=== PATIENT | male | born 1980 | race African-American/Black ===

== ENCOUNTER 2016-10-03 14:01 | Emergency (ER) | payer BC ==
[2016-10-03] MEDS ORDERED: ONDANSETRON 4 MG TAB.RAPDIS PO ONE (14:32)
--- NOTE | 2016-10-03 14:32 | ER Document Report ---
ED Medical Screen (RME) - General Stated Complaint: ABDOMINAL PAIN,VOMITING Notes: States he was started on lisinopril on Thursday. Has been taking on empty stomach. Vomiting and abdominal pain started Thursday, no diarrhea. No vomiting today. No dysuria. No fever. I have greeted and performed a rapid initial assessment of this patient. A comprehensive ED assessment and evaluation of the patient, analysis of test results and completion of the medical decision making process will be conducted by additional ED providers. Physical Exam - Vital signs Vitals: Temp Pulse Resp BP Pulse Ox 98.8 F 86 18 173/73 H 100 10/03/16 14:24 10/03/16 14:24 10/03/16 14:24 10/03/16 14:24 10/03/16 14:24 - Abdominal Inspection: Obese Tenderness: Tender - epigastric area Course - Vital Signs Vital signs: Temp Pulse Resp BP Pulse Ox 98.8 F 86 18 173/73 H 100 10/03/16 14:24 10/03/16 14:24 10/03/16 14:24 10/03/16 14:24 10/03/16 14:24
[2016-10-03 15:16] LABS: ABSOLUTE BASOPHILS # (AUTO) 0.1 10^3/uL (0.0-0.2); ABSOLUTE EOSINOPHILS # (AUTO) 0.4 10^3/uL (0.0-0.6); ABSOLUTE LYMPHOCYTES (AUTO) 2.7 10^3/uL (0.5-4.7); ABSOLUTE NEUT (AUTO) 11.7 10^3/uL (1.7-8.2); BASOPHILS % (AUTO) 0.6 % (0-2); EOSINOPHILS % (AUTO) 2.6 % (0-6); HEMATOCRIT 48.7 % (37.9-51.0); HEMOGLOBIN 15.7 g/dL (13.5-17.0); HGB HCT DIFFERENCE -1.6; LYMPHOCYTES % (AUTO) 17.1 % (13-45); MEAN CORPUSCULAR HEMOGLOBIN 26.3 pg (27.0-33.4); MEAN CORPUSCULAR HGB CONC 32.3 g/dL (32.0-36.0); MEAN CORPUSCULAR VOLUME 81 fl (80-97); MONOCYTES % (AUTO) 6.4 % (3-13); RED BLOOD COUNT 5.98 10^6/uL (4.35-5.55); RED CELL DISTRIBUTION WIDTH 15.8 % (11.5-14.0); SEGMENTED NEUTROPHILS % (AUTO) 73.3 % (42-78)
[2016-10-03 15:39] LABS: ALANINE AMINOTRANSFERASE 38 U/L (21-72); ALBUMIN 4.7 g/dL (3.5-5.0); ALKALINE PHOSPHATASE 90 U/L (38-126); ANION GAP 13 (5-19); ASPARTATE AMINO TRANSFERASE 27 U/L (17-59); BILIRUBIN,DIRECT 0.2 mg/dL (0.0-0.4); BILIRUBIN,TOTAL 0.8 mg/dL (0.2-1.3); BLOOD UREA NITROGEN 11 mg/dL (7-20); CALCIUM 10.1 mg/dL (8.4-10.2); CARBON DIOXIDE 31 mmol/L (22-30); CHLORIDE 98 mmol/L (98-107); CREATININE RESULT 0.84 mg/dL (0.52-1.25); GLUCOSE 133 mg/dL (75-110); LIPASE 39.6 U/L (23-300); POTASSIUM 4.1 mmol/L (3.6-5.0); SODIUM 141.8 mmol/L (137-145); TOTAL PROTEIN 8.2 g/dL (6.3-8.2)
[2016-10-03 16:43] LABS: APPEARANCE,URINE TURBID; BILIRUBIN,URINE SMALL (NEGATIVE); GLUCOSE, URINE NEGATIVE (NEGATIVE); KETONES,URINE 80 mg/dL (NEGATIVE); LEUKOCYTE ESTERASE,URINE NEGATIVE (NEGATIVE); NITRITE,URINE NEGATIVE (NEGATIVE); PROTEIN,URINE 100 mg/dL (NEGATIVE); URINE SPECIFIC GRAVITY 1.038
[2016-10-03] MEDS ORDERED: NORMAL SALINE 1000 ML 2,000 ML IV ONE (17:52)
--- NOTE | 2016-10-03 17:52 | ER Document Report ---
ED GI/ - General Chief Complaint: Abdominal Pain Stated Complaint: ABDOMINAL PAIN,VOMITING Time seen by provider: 17:47 Mode of Arrival: Ambulatory Information source: Patient Notes: 35-year-old morbidly obese male complaining of right-sided abdominal pain and vomiting for 2 days. No diarrhea. He had a hard stool yesterday. No fever or chills. No rash. No history of abdominal surgeries. I called and the CT scanner does not accommodate someone that weighs 227 kg but they do have a ability to do an acute abdominal exam on the man side of the radiology. I discussed this case with Dr. Khan and after morphine and 2 L of fluid we will will look at the acute abdominal series and decide if he still needs a CT scan. TRAVEL OUTSIDE OF THE [place] IN LAST 30 DAYS: No - Related Data Allergies/Adverse Reactions: No Known Allergies Allergy (Unverified 10/03/16 14:31) Past Medical History - General Information source: Patient - Social History Smoking Status: Never Smoker Chew tobacco use (# tins/day): No Frequency of alcohol use: None Drug Abuse: None Lives with: Family Family History: Reviewed & Not Pertinent - Medical History Notes: Morbid obesity Renal/ Medical History: Denies: Hx Peritoneal Dialysis Surgical Hx: Negative Past Surgical History: Reports: Other - He is a patient at [facility] for possible weight [facility] surgery in the - Immunizations Hx Diphtheria, Pertussis, Tetanus Vaccination: No Review of Systems - Review of Systems Constitutional: No symptoms reported EENT: No symptoms reported Cardiovascular: No symptoms reported Respiratory: No symptoms reported Gastrointestinal: See HPI Genitourinary: No symptoms reported Male Genitourinary: No symptoms reported Musculoskeletal: No symptoms reported Skin: No symptoms reported Hematologic/Lymphatic: No symptoms reported Neurological/Psychological: No symptoms reported Physical Exam - Vital signs Vitals: Temp Pulse Resp BP Pulse Ox 98.8 F 86 18 173/73 H 100 10/03/16 14:24 10/03/16 14:24 10/03/16 14:24 10/03/16 14:24 10/03/16 14:24 Interpretation: Hypertensive. No: Febrile - Notes Notes: Morbidly obese - General General appearance: Appears well, Alert In distress: None - HEENT Head: Normocephalic, Atraumatic Eyes: Normal Conjunctiva: Normal Pupils: PERRL Tympanic membrane: Normal Nasal: Normal Mucous membranes: Dry Neck: Supple. No: Lymphadenopathy - Respiratory Respiratory status: No respiratory distress Chest status: Nontender Breath sounds: Normal Chest palpation: Normal - Cardiovascular Rhythm: Regular Heart sounds: Normal auscultation Murmur: No - Abdominal Inspection: Normal Distension: No distension Bowel sounds: Normal Tenderness: Tender - Right middle Organomegaly: No organomegaly Notes: Abdomen is so large it is difficult to determine where the organs are - Back Back: Normal, Nontender. No: CVA tenderness - Extremities General upper extremity: Normal inspection, Nontender, Normal color, Normal ROM , Normal temperature General lower extremity: Normal inspection, Nontender, Normal color, Normal ROM , Normal temperature, Normal weight bearing. No: Gera's sign - Neurological Neuro grossly intact: Yes Cognition: Normal Orientation: AAOx4 Mathew Coma Scale Eye Opening: Spontaneous Mathew Coma Scale Verbal: Oriented [place] Coma Scale Motor: Obeys Commands [place] Coma Scale Total: 15 Speech: Normal Motor strength normal: LUE, RUE, LLE, RLE Sensory: Normal - Psychological Associated symptoms: Normal affect, Normal mood - Skin Skin Temperature: Warm Skin Moisture: Dry Skin Color: Normal Skin irregularity: negative: Rash Course - Re-evaluation Re-evalutation: 10/03/16 17:54 Patient weight is too high for our CT scan tables. We do have a table in radiology that will hold him for an acute abdominal series which I will start with that x-ray. 10/03/16 20:58 pt is non tender, ddrinking water without nausea or abd pain. dr. collazo will check the pt to make sure he can go home. will have the pt return for recheck in the morning. - Vital Signs Vital signs: Temp Pulse Resp BP Pulse Ox 98.8 F 86 18 173/73 H 100 10/03/16 14:24 10/03/16 14:24 10/03/16 16:54 10/03/16 14:24 10/03/16 14:24 - Laboratory Result Diagrams: 10/03/16 13:57 10/03/16 13:57 Laboratory results interpreted by me: 10/03/16 10/03/16 10/03/16 13:57 13:57 13:57 WBC 16.0 H RBC 5.98 H MCH 26.3 L RDW 15.8 H Absolute Neutrophils 11.7 H Carbon Dioxide 31 H Glucose 133 H Urine Protein 100 H Urine Ketones 80 H Urine Bilirubin SMALL H Urine Urobilinogen 2.0 H Discharge - Discharge Clinical Impression: vomiting, dehydration, Resolved abdominal pain Condition: Good Disposition: HOME, SELF-CARE Instructions: Abdominal Pain ([facility]), Dehydration ([facility]), Vomiting ([facility]) Additional Instructions: drink plenty of water tonight, advance diet as tolerated. return if abominal pain recurs dr taylor will need to order a thyroid ultrsound or CT of the neck to rule out a vamsi or left lobe of thyroid enlargement. The imaging of the abdomen showed that the trachea is deviated to the right. come to er tomorrow for abdominal recheck and lab recheck Please complete the patient satisfaction survey if you get one, and return it.. If you do not receive a survey, then you can go to the [facility] website, [email or web address] and place your comments about your very good care. Thank you very much. It was a pleasure being your medical provider today. Referrals: AGA TAYLOR MD [ACTIVE STAFF] - 10/06/16
[2016-10-03] MEDS ORDERED: MORPHINE SULFATE 10 MG/ML INJ IV ONE (17:53)
[2016-10-03 21:26] VITALS: BP 140/68
== END 2016-10-03 21:24 | disposition home or self-care (01) ==
LOC: ER 14:01
DX: R11.10 Vomiting, unspecified (principal); E86.0 Dehydration; R10.9 Unspecified abdominal pain; E66.01 Morbid (severe) obesity due to excess calories
CPT/HCPCS: 99284; 96374; 36415; 83690; 85025; 80053; 81001; 74022; S0119; J2270; J7030

== ENCOUNTER 2016-10-04 16:24 | Emergency (ER) | payer BC ==
--- NOTE | 2016-10-04 16:29 | ER Document Report ---
ED Medical Screen (RME) - General Stated Complaint: ABDOMINAL PAIN Mode of Arrival: Ambulatory Information source: Patient Notes: Patient reports a history of abdominal pain for the past 72 hours. Patient was evaluated here for this complaint yesterday and advised to come back for repeat examination. No nausea, vomiting, or diarrhea. No fever. Patient reports that taking anything oral aggravates his abdominal pain. hx: None I have greeted and performed a rapid initial assessment of this patient. A comprehensive ED assessment and evaluation of the patient, analysis of test results and completion of the medical decision making process will be conducted by additional ED providers. TRAVEL OUTSIDE OF THE [place] IN LAST 30 DAYS: No - Related Data Allergies/Adverse Reactions: No Known Allergies Allergy (Unverified 10/03/16 14:31) Past Medical History Renal/ Medical History: Denies: Hx Peritoneal Dialysis Past Surgical History: Reports: Other - He is a patient at [facility] for possible weight loss surgery in the - Immunizations Hx Diphtheria, Pertussis, Tetanus Vaccination: No Physical Exam - Abdominal Inspection: Morbidly Obese Tenderness: Tender - Middle temporal tenderness
[2016-10-04 17:03] LABS: APPEARANCE,URINE SLIGHTLY-CLOUDY; BILIRUBIN,URINE NEGATIVE (NEGATIVE); GLUCOSE, URINE NEGATIVE (NEGATIVE); KETONES,URINE 20 mg/dL (NEGATIVE); LEUKOCYTE ESTERASE,URINE NEGATIVE (NEGATIVE); NITRITE,URINE NEGATIVE (NEGATIVE); PROTEIN,URINE NEGATIVE (NEGATIVE); URINE SPECIFIC GRAVITY 1.024
[2016-10-04 17:07] LABS: ABSOLUTE BASOPHILS # (AUTO) 0.1 10^3/uL (0.0-0.2); ABSOLUTE EOSINOPHILS # (AUTO) 0.4 10^3/uL (0.0-0.6); ABSOLUTE LYMPHOCYTES (AUTO) 2.4 10^3/uL (0.5-4.7); ABSOLUTE MONOCYTES (AUTO) 0.9 10^3/uL (0.1-1.4); ABSOLUTE NEUT (AUTO) 8.7 10^3/uL (1.7-8.2); BASOPHILS % (AUTO) 0.5 % (0-2); EOSINOPHILS % (AUTO) 3.2 % (0-6); HEMATOCRIT 43.2 % (37.9-51.0); HEMOGLOBIN 14.5 g/dL (13.5-17.0); HGB HCT DIFFERENCE 0.3; LYMPHOCYTES % (AUTO) 19.5 % (13-45); MEAN CORPUSCULAR HEMOGLOBIN 26.5 pg (27.0-33.4); MEAN CORPUSCULAR HGB CONC 33.5 g/dL (32.0-36.0); MEAN CORPUSCULAR VOLUME 79 fl (80-97); MONOCYTES % (AUTO) 7.3 % (3-13); RED BLOOD COUNT 5.47 10^6/uL (4.35-5.55); RED CELL DISTRIBUTION WIDTH 15.4 % (11.5-14.0); SEGMENTED NEUTROPHILS % (AUTO) 69.5 % (42-78); WHITE BLOOD COUNT 12.4 10^3/uL (4.0-10.5)
[2016-10-04 17:28] LABS: ALANINE AMINOTRANSFERASE 47 U/L (21-72); ALBUMIN 4.1 g/dL (3.5-5.0); ALKALINE PHOSPHATASE 74 U/L (38-126); ANION GAP 13 (5-19); ASPARTATE AMINO TRANSFERASE 32 U/L (17-59); BILIRUBIN,DIRECT 0.3 mg/dL (0.0-0.4); BILIRUBIN,TOTAL 0.7 mg/dL (0.2-1.3); BLOOD UREA NITROGEN 8 mg/dL (7-20); CALCIUM 9.4 mg/dL (8.4-10.2); CARBON DIOXIDE 29 mmol/L (22-30); CHLORIDE 99 mmol/L (98-107); CREATININE RESULT 0.89 mg/dL (0.52-1.25); GLUCOSE 128 mg/dL (75-110); POTASSIUM 4.2 mmol/L (3.6-5.0); SODIUM 141.3 mmol/L (137-145); TOTAL PROTEIN 7.4 g/dL (6.3-8.2)
== END 2016-10-04 18:05 | disposition left against medical advice (07) ==
LOC: ER 16:24
DX: Z53.9 Procedure and treatment not carried out, unspecified reason (principal); R10.9 Unspecified abdominal pain
CPT/HCPCS: 36415; 80053; 81001; 83690; 85025; 99281

== ENCOUNTER 2017-12-17 10:18 | Emergency (ER) | payer BC ==
--- NOTE | 2017-12-17 10:37 | ER Document Report ---
ED Medical Screen (RME) - General Chief Complaint: Weakness Stated Complaint: WEAKNESS, NAUSEA, DIZZY Time Seen by Provider: 12/17/17 10:26 TRAVEL OUTSIDE OF THE [place] IN LAST 30 DAYS: No - Related Data Allergies/Adverse Reactions: No Known Allergies Allergy (Verified 12/17/17 10:19) Past Medical History - Social History Chew tobacco use (# tins/day): No Frequency of alcohol use: None Drug Abuse: None Renal/ Medical History: Denies: Hx Peritoneal Dialysis Past Surgical History: Reports: Other - He is a patient at [facility] for possible weight loss surgery in the - Immunizations Hx Diphtheria, Pertussis, Tetanus Vaccination: No Physical Exam - Vital signs Vitals: Temp Pulse Resp BP Pulse Ox 97.9 F 109 H 12 133/106 H 96 12/17/17 10:23 12/17/17 10:23 12/17/17 10:23 12/17/17 10:23 12/17/17 10:23 Course - Vital Signs Vital signs: Temp Pulse Resp BP Pulse Ox 97.9 F 109 H 12 133/106 H 96 12/17/17 10:23 12/17/17 10:23 12/17/17 10:23 12/17/17 10:23 12/17/17 10:23 Doctor's Discharge - Discharge Referrals: JOAN HERNANDEZ MD [Primary Care Provider] - Follow up as needed
[2017-12-17] MEDS ORDERED: RINGERS SOLUTION,LACTATED 1,000 ML IV PRN (10:39)
--- NOTE | 2017-12-17 10:49 | ER Document Report ---
ED General - General Mode of Arrival: Wheelchair Information source: Patient TRAVEL OUTSIDE OF THE [place] IN LAST 30 DAYS: No <BRENDON YING - Last Filed: 12/17/17 18:02> <CARLOS CHAUHAN - Last Filed: 12/17/17 18:04> - General Chief Complaint: Weakness Stated Complaint: WEAKNESS, NAUSEA, DIZZY Time Seen by Provider: 12/17/17 10:26 Notes: Patient is a 37-year-old male who presents to the emergency department today with complaints of generalized weakness and near syncope. Patient recently had gastric bypass surgery. Patient states he has been unable to keep any thing down since shortly after discharge. Patient states that water "does not taste right" and he has been vomiting it back up. Patient states he "feels like he needs an IV to get caught back up fluids". Patient denies any sweats, chills, or abdominal pain. (BRENDON YING) - Related Data Allergies/Adverse Reactions: No Known Allergies Allergy (Verified 12/17/17 10:19) Past Medical History - General Information source: Patient - Social History Smoking Status: Never Smoker Cigarette use (# per day): No Chew tobacco use (# tins/day): No Frequency of alcohol use: None Drug Abuse: None Lives with: Family Family History: Reviewed & Not Pertinent Patient has suicidal ideation: No Patient has homicidal ideation: No Renal/ Medical History: Denies: Hx Peritoneal Dialysis Past Surgical History: Reports: Hx Gastric Bypass Surgery - Immunizations Hx Diphtheria, Pertussis, Tetanus Vaccination: No <BRENDON YING - Last Filed: 12/17/17 18:02> Review of Systems - Review of Systems Constitutional: See HPI, Weakness - generalized. denies: Chills, Diaphoresis EENT: No symptoms reported Cardiovascular: See HPI, Other - near syncope Respiratory: No symptoms reported Gastrointestinal: See HPI, Vomiting Genitourinary: No symptoms reported Male Genitourinary: No symptoms reported Musculoskeletal: No symptoms reported Skin: No symptoms reported Hematologic/Lymphatic: No symptoms reported Neurological/Psychological: No symptoms reported -: Yes All other systems reviewed and negative <BRENDON YING - Last Filed: 12/17/17 18:02> Physical Exam <BRENDON YING - Last Filed: 12/17/17 18:02> <CARLOS CHAUHAN - Last Filed: 12/17/17 18:04> - Vital signs Vitals: Temp Pulse Resp BP Pulse Ox 97.9 F 109 H 12 133/106 H 96 12/17/17 10:23 12/17/17 10:23 12/17/17 10:23 12/17/17 10:23 12/17/17 10:23 - Notes Notes: PHYSICAL EXAM GENERAL: Alert, interacts well. No acute distress. Obese. Crying and making tears. HEAD: Normocephalic, atraumatic. EYES: Pupils equal, round, and reactive to light. Extraocular movements intact. ENT: Oral mucosa moist, tongue midline. NECK: Full range of motion. Supple. Trachea midline. LUNGS: Clear to auscultation bilaterally, no wheezes, rales, or rhonchi. No respiratory distress. HEART: Regular rate and rhythm. No murmurs, gallops, or rubs. ABDOMEN: Obese. Bowel sounds present in all 4 quadrants. EXTREMITIES: Moves all 4 extremities spontaneously. NEUROLOGICAL: Alert and oriented x3. Normal speech. PSYCH: Crying, emotional. SKIN: Warm, dry, normal turgor. No rashes or lesions noted. (BRENDON YING) Course - Laboratory Result Diagrams: 12/17/17 10:47 12/17/17 11:57 <BRENDON YING - Last Filed: 12/17/17 18:02> - Laboratory Result Diagrams: 12/17/17 10:47 12/17/17 11:57 <CARLOS CHAUHAN - Last Filed: 12/17/17 18:04> - Re-evaluation Re-evalutation: 12/17/17 13:41 CBC shows mild leukocytosis 12.2 but no shift, CMP shows slightly elevated sodium at 147, no signs of dehydration on the blood work, normal CO2 at 23, anion gap is not elevated, BUN and creatinine are normal, urinalysis shows elevated specific gravity 1.028, 80 of ketones, small blood but no signs of infection. Patient will be discharged home, encouraged to drink plenty fluids. Patient was counseled on why we cannot simply take him up with 24 hours worth of fluids as he requested, explained third spacing and the risk of fluid overload. Patient is encouraged to monitor his color of his urine and his frequency of urination, try adding flavoring to his water and drinking plenty of fluids. 12/17/17 18:04 patient states he has had this happen several times since surgery, recently had a CAT scan at [place] that showed no problem with his anastomosis. States he feels no different than the prior times when he is needed to have fluids. ( CARLOS CHAUHAN) - Vital Signs Vital signs: Temp Pulse Resp BP Pulse Ox 97.8 F 96 17 136/92 H 98 12/17/17 13:52 12/17/17 13:52 12/17/17 13:52 12/17/17 13:52 12/17/17 13:52 - Laboratory Laboratory results interpreted by me: 12/17/17 12/17/17 12/17/17 10:47 11:57 11:57 WBC 12.2 H RBC 6.09 H MCV 78 L MCH 26.4 L RDW 15.4 H Absolute Monocytes 1.5 H Sodium 147.0 H Glucose 118 H Calcium 10.5 H Urine Protein >=500 H Urine Ketones 80 H Urine Blood SMALL H Urine Bilirubin SMALL H Urine Urobilinogen 4.0 H Discharge <BRENDON YING - Last Filed: 12/17/17 18:02> <CARLOS CHAUHAN - Last Filed: 12/17/17 18:04> - Discharge Clinical Impression: Mild dehydration, Bariatric surgery complication Condition: Stable Disposition: HOME, SELF-CARE Additional Instructions: Today you had mild dehydration. It was evident in your urine but there is no sign of kidney damage from the dehydration. We gave you 2 L of lactated Ringer' s, this includes some of the important electrolytes as well as fluids. Please drink plenty of fluids, you should be urinating at least 4 times a day. If you do not urinate at least 4 times a day please come to the emergency department. Referrals: JOAN HERNANDEZ MD [ACTIVE STAFF] - Follow up as needed Scribe Attestation: 12/17/17 18:04 I personally performed the services described in the documentation, reviewed and edited the documentation which was dictated to the scribe in my presence, and it accurately records my words and actions. (CARLOS CHAUHAN) Scribe Documentation - Scribe Written by Scribe:: Robel Smalls, 12/17/2017 1113 acting as scribe for :: Maria Dolores <BRENDON YING - Last Filed: 12/17/17 18:02>
[2017-12-17 11:17] LABS: ABSOLUTE BASOPHILS # (AUTO) 0.2 10^3/uL (0.0-0.2); ABSOLUTE EOSINOPHILS # (AUTO) 0.2 10^3/uL (0.0-0.6); ABSOLUTE LYMPHOCYTES (AUTO) 2.6 10^3/uL (0.5-4.7); ABSOLUTE MONOCYTES (AUTO) 1.5 10^3/uL (0.1-1.4); ABSOLUTE NEUT (AUTO) 7.8 10^3/uL (1.7-8.2); BASOPHILS % (AUTO) 1.2 % (0-2); EOSINOPHILS % (AUTO) 1.5 % (0-6); HEMATOCRIT 47.7 % (37.9-51.0); HEMOGLOBIN 16.1 g/dL (13.5-17.0); MEAN CORPUSCULAR HEMOGLOBIN 26.4 pg (27.0-33.4); MEAN CORPUSCULAR HGB CONC 33.7 g/dL (32.0-36.0); MEAN CORPUSCULAR VOLUME 78 fl (80-97); PLATELET COUNT 232 10^3/uL (150-450); RED BLOOD COUNT 6.09 10^6/uL (4.35-5.55); RED CELL DISTRIBUTION WIDTH 15.4 % (11.5-14.0); SEGMENTED NEUTROPHILS % (AUTO) 64.3 % (42-78); TOTAL CELLS COUNTED % (AUTO) 100 %; WHITE BLOOD COUNT 12.2 10^3/uL (4.0-10.5)
[2017-12-17 12:21] LABS: APPEARANCE,URINE SLIGHTLY-CLOUDY; BILIRUBIN,URINE SMALL (NEGATIVE); COLOR,URINE YELLOW; GLUCOSE, URINE NEGATIVE (NEGATIVE); KETONES,URINE 80 mg/dL (NEGATIVE); LEUKOCYTE ESTERASE,URINE NEGATIVE (NEGATIVE); NITRITE,URINE NEGATIVE (NEGATIVE); PROTEIN,URINE >=500 mg/dL (NEGATIVE); URINE SPECIFIC GRAVITY 1.028
[2017-12-17 12:31] LABS: ANION GAP 18 (5-19); BLOOD UREA NITROGEN 13 mg/dL (7-20); CALCIUM 10.5 mg/dL (8.4-10.2); CARBON DIOXIDE 23 mmol/L (22-30); CHLORIDE 106 mmol/L (98-107); GLUCOSE 118 mg/dL (75-110); POTASSIUM 4.1 mmol/L (3.6-5.0)
[2017-12-17 13:53] VITALS: BP 136/92
== END 2017-12-17 14:00 | disposition home or self-care (01) ==
LOC: ER 10:18
DX: E86.0 Dehydration (principal); K95.89 Other complications of other bariatric procedure; R53.1 Weakness; R42 Dizziness and giddiness; R11.2 Nausea with vomiting, unspecified; D72.829 Elevated white blood cell count, unspecified; Z98.84 Bariatric surgery status
CPT/HCPCS: 99284; 96360; 36415; 85025; 80048; 81001; J7120

== ENCOUNTER 2017-12-28 11:31 | Emergency (ER) | payer BC ==
[2017-12-28] MEDS ORDERED: MINERAL OIL 30 ML UDCUP PR ONE ×2 (12:14→13:56)
[2017-12-28] MEDS ORDERED: LIDOCAINE 2% URO-JET 5 ML KIT MM ONE ×2 (12:14→14:46)
--- NOTE | 2017-12-28 12:14 | ER Document Report ---
ED Medical Screen (RME) - General TRAVEL OUTSIDE OF THE [place] IN LAST 30 DAYS: No - General Chief Complaint: Abdominal Pain Stated Complaint: ABDOMINAL PAIN Time Seen by Provider: 12/28/17 12:04 Notes: Patient is a 37-year-old male who presents to the emergency department today with complaints of constipation. Patient has had gastric bypass surgery and has had several complications since the surgery. Most of these complications are dehydration as the patient states he cannot keep down water. Patient states his constipation started with being unable to keep down water for the last few days and he thinks he is not dehydrated causing constipation. I have greeted and performed a rapid initial assessment of this patient. A comprehensive ED assessment and evaluation of the patient, analysis of test results, and completion of the medical decision making process will be conducted by additional ED providers. Review of systems: Positive for constipation, vomiting, and generalized weakness. PHYSICAL EXAM GENERAL: Alert, interacts well. No acute distress. Obese. HEAD: Normocephalic, atraumatic. EYES: Pupils equal, round, and reactive to light. Extraocular movements intact. ENT: Oral mucosa moist, tongue midline. NECK: Full range of motion. Supple. Trachea midline. LUNGS: Clear to auscultation bilaterally, no wheezes, rales, or rhonchi. No respiratory distress. HEART: Regular rate and rhythm. No murmurs, gallops, or rubs. ABDOMEN: Obese. Soft, mild diffuse tenderness with palpation. Non-distended. Bowel sounds present in all 4 quadrants. No guarding, rigidity, or rebound. EXTREMITIES: Moves all 4 extremities spontaneously. No edema, radial and dorsalis pedis pulses 2/4 bilaterally. No cyanosis. NEUROLOGICAL: Alert and oriented x3. Normal speech. PSYCH: Normal affect, normal mood. SKIN: Warm, dry, normal turgor. No rashes or lesions noted. (BRENDON YING) Use mineral oil enema at home without success. (CARLOS CHAUHAN) - Related Data Allergies/Adverse Reactions: No Known Allergies Allergy (Verified 12/28/17 11:35) Past Medical History - Social History Chew tobacco use (# tins/day): No Frequency of alcohol use: None Drug Abuse: None Renal/ Medical History: Denies: Hx Peritoneal Dialysis Past Surgical History: Reports: Hx Gastric Bypass Surgery, Other - He is a patient at [facility] for possible weight loss surgery in the - Immunizations Hx Diphtheria, Pertussis, Tetanus Vaccination: No - Vital signs Vitals: Temp Pulse Resp BP Pulse Ox 98.1 F 125 H 22 H 142/86 H 98 12/28/17 11:35 12/28/17 11:35 12/28/17 11:35 12/28/17 11:35 12/28/17 11:35 - Vital Signs Vital signs: Temp Pulse Resp BP Pulse Ox 98.6 F 91 22 H 121/61 100 12/28/17 15:39 12/28/17 15:39 12/28/17 11:35 12/28/17 15:39 12/28/17 15:39 Doctor's Discharge - Discharge Clinical Impression: Constipation, Poor fluid intake, H/O gastric bypass Condition: Good Disposition: HOME, SELF-CARE Instructions: Constipation ([facility]) Additional Instructions: Please follow-up with your primary care physician as already scheduled in 2 days. Please return to the emergency department if you experience worsening pain, inability to tolerate fluids. Prescriptions: Docusate Sodium [Colace 100 mg Capsule] 100 mg PO DAILY #30 capsule Magnesium Hydroxide [Milk of Magnesia] 400 mg PO ONCE PRN #25 ml PRN Reason: Metoclopramide HCl [Reglan 10 mg Tablet] 1 tab PO Q6H PRN #15 tablet PRN Reason: Scribe Documentation - Scribe Written by Robel:: Robel mSalls, 12/28/2017, 1430 acting as scribe for :: Maria Dolores
[2017-12-28] MEDS ORDERED: GLYCERIN (ADULT) SUPP.RECT PR ONE (12:15)
[2017-12-28] MEDS ORDERED: NORMAL SALINE 1000 ML 1,000 ML IV ONE (12:31)
--- NOTE | 2017-12-28 13:05 | RADIOLOGY REPORT (SQ) ---
EXAM DESCRIPTION: ACUTE ABDOMEN SERIES COMPLETED DATE/TIME: 12/28/2017 12:52 pm REASON FOR STUDY: vomiting and constipation, recent gastric bypass COMPARISON: None. NUMBER OF VIEWS: Three views. TECHNIQUE: Frontal chest, supine abdomen and upright/decubitus abdomen radiographic images acquired. LIMITATIONS: None. FINDINGS: CHEST: Lungs clear of infiltrates. FREE AIR: None. No abnormal gas collections. BOWEL GAS PATTERN: Nonobstructive pattern. No dilated loops or air fluid levels. CALCIFICATIONS: No suspicious calcifications. HARDWARE: None in the abdomen. SOFT TISSUES: No gross mass or suggestion of organomegaly. BONES: No acute fracture. No worrisome bone lesions. OTHER: No other significant finding. IMPRESSION: NO RADIOGRAPHIC EVIDENCE FOR ACUTE ABDOMINAL DISEASE. TECHNICAL DOCUMENTATION: JOB ID: [id number] [employer]- All Rights Reserved Reading location - IP/workstation name: [email or web address]
--- NOTE | 2017-12-28 15:20 | ER Document Report ---
ED General - General Chief Complaint: Abdominal Pain Stated Complaint: ABDOMINAL PAIN Time Seen by Provider: 12/28/17 12:04 Mode of Arrival: Ambulatory Information source: Patient, Relative, [facility] Records Notes: 37-year-old male with history of gastric bypass, morbid obesity presents with complaint of nausea, vomiting, constipation. Patient underwent gastric bypass surgery in November 2017. He states since that time he has had issues with vomiting , fluid intake. Patient complaining of pain with bowel movements. He states he has been taking enemas at home and has had some bowel movements but states he feels a piece is stuck. Patient denies fever, chills, chest pain, shortness of breath, dysuria, hematuria. TRAVEL OUTSIDE OF THE [place] IN LAST 30 DAYS: No - HPI Onset: Other Onset/Duration: Constant, Persistent Quality of pain: Cramping Severity: Mild Associated symptoms: Nausea, Vomiting Exacerbated by: Denies Relieved by: Denies Similar symptoms previously: Yes Recently seen / treated by doctor: Yes - Related Data Allergies/Adverse Reactions: No Known Allergies Allergy (Verified 12/28/17 11:35) Past Medical History - General Information source: Patient, [facility] Records - Social History Smoking Status: Never Smoker Chew tobacco use (# tins/day): No Frequency of alcohol use: None Drug Abuse: None Lives with: Spouse/Significant other Family History: Reviewed & Not Pertinent Patient has suicidal ideation: No Patient has homicidal ideation: No Renal/ Medical History: Denies: Hx Peritoneal Dialysis Past Surgical History: Reports: Hx Gastric Bypass Surgery, Other - He is a patient at [facility] for possible weight loss surgery in the - Immunizations Hx Diphtheria, Pertussis, Tetanus Vaccination: No Review of Systems - Review of Systems Notes: REVIEW OF SYSTEMS: CONSTITUTIONAL : Denies fever, chills, or sweats. Denies recent illness. Denies weight loss, recent hospitalizations. EENT: Denies visual changes, eye pain. Denies nasal or sinus congestion or discharge. Denies sore throat, oral lesions, difficulty swallowing. CARDIOVASCULAR: Denies chest pain. Denies palpitations. Denies lower extremity edema. RESPIRATORY: Denies cough, cold, or chest congestion. Denies shortness of breath, wheezing. GASTROINTESTINAL: Denies blood in vomitus, stools, or per rectum. Denies black , tarry stools. Denies constipation. GENITOURINARY: Denies difficulty urinating, painful urination, frequency, blood in urine, or vaginal discharge. MUSCULOSKELETAL: Denies back or neck pain or stiffness. Denies joint pain or swelling. SKIN: Denies rash, lesions or sores. HEMATOLOGIC : Denies easy bruising or bleeding. LYMPHATIC: Denies swollen glands. NEUROLOGICAL: Denies confusion or altered mental status. Denies passing out or loss of consciousness. Denies dizziness or lightheadedness. Denies headache. Denies weakness or paralysis. Denies problems difficulty with ambulation, slurred speech. Denies sensory loss, numbness, or tingling. Denies seizures. PSYCHIATRIC: Denies anxiety or stress. Denies depression, suicidal ideation, or homicidal ideation. Denies visual or auditory hallucinations. Physical Exam - Vital signs Vitals: Temp Pulse Resp BP Pulse Ox 98.1 F 125 H 22 H 142/86 H 98 12/28/17 11:35 12/28/17 11:35 12/28/17 11:35 12/28/17 11:35 12/28/17 11:35 - Notes Notes: PHYSICAL EXAMINATION: GENERAL: Well-appearing, well-nourished and in no acute distress. HEAD: Atraumatic, normocephalic. EYES: Pupils equal round and reactive to light, extraocular movements intact, sclera anicteric, conjunctiva are normal. ENT: Nares patent, oropharynx clear without exudates. Moist mucous membranes. NECK: Normal range of motion, supple without lymphadenopathy LUNGS: Breath sounds clear to auscultation bilaterally and equal. No wheezes rales or rhonchi. HEART: Regular rate and rhythm without murmurs ABDOMEN: Soft, nontender, nondistended abdomen. No guarding, no rebound. No masses appreciated. rectal: No fecal impaction. No external hemorrhoids, brown stool. Musculoskeletal: Normal range of motion, no pitting or edema. No cyanosis. NEUROLOGICAL: Cranial nerves grossly intact. Normal speech, normal gait. Normal sensory, motor exams PSYCH: Normal mood, normal affect. SKIN: Warm, Dry, normal turgor, no rashes or lesions noted. Course - Re-evaluation Re-evalutation: 12/28/17 15:49 37-year-old male presents with complaint of nausea, vomiting, abdominal pain and constipation that have been ongoing since his gastric bypass surgery in November 2017. Patient admits to poor p.o. intake. He states that he is not being compliant with the amount of fluids he was told to drink by his surgeon. He has had a recent follow-up with his surgeon who the patient reports telling her about his decreased bowel movements. He has been prescribed MiraLAX but has not taken it. He is not currently any opioid medications. Vital signs reviewed upon arrival. Patient is mildly tachycardic but afebrile. He has a benign abdominal exam. I did attempt to disimpact the patient after inserting lidocaine jelly into the rectum. There is no stool directly at the rectum. Patient is not cooperate with this and asked me to stop. Patient encouraged to drink fluids, Gatorade to start his MiraLAX. Colace was added today. He has an upcoming appointment with his primary care physician and he was urged to make sure that he attends that appointment. My discharge home. 12/28/17 15:50 - Vital Signs Vital signs: Temp Pulse Resp BP Pulse Ox 98.6 F 91 22 H 121/61 100 12/28/17 15:39 12/28/17 15:39 12/28/17 11:35 12/28/17 15:39 12/28/17 15:39 - Diagnostic Test Radiology reviewed: Image reviewed, Reports reviewed Discharge - Discharge Clinical Impression: Poor fluid intake, H/O gastric bypass Constipation Qualifiers: Constipation type: unspecified constipation type Qualified Code(s): K59.00 - Constipation, unspecified Condition: Good Disposition: HOME, SELF-CARE Instructions: Constipation (OM) Additional Instructions: Please follow-up with your primary care physician as already scheduled in 2 days. Please return to the emergency department if you experience worsening pain, inability to tolerate fluids. Prescriptions: Docusate Sodium [Colace 100 mg Capsule] 100 mg PO DAILY #30 capsule Magnesium Hydroxide [Milk of Magnesia] 400 mg PO ONCE PRN #25 ml PRN Reason: Metoclopramide HCl [Reglan 10 mg Tablet] 1 tab PO Q6H PRN #15 tablet PRN Reason:
[2017-12-28 16:12] VITALS: BP 121/61
== END 2017-12-28 16:12 | disposition home or self-care (01) ==
LOC: ER 11:31
DX: K59.00 Constipation, unspecified (principal); T47.3X6A Underdosing of saline and osmotic laxatives, initial encounter; Z91.14 Patient's other noncompliance with medication regimen; R11.2 Nausea with vomiting, unspecified; Z98.84 Bariatric surgery status; R00.0 Tachycardia, unspecified
CPT/HCPCS: 99284; 96360; 74022; J3490 ×3; J7030

== ENCOUNTER 2018-05-09 00:10 | Emergency (ER) | payer OTHER, BC ==
[2018-05-09] MEDS ORDERED: NORMAL SALINE 1000 ML 1,000 ML IV ONE ×2 (00:54→02:41)
[2018-05-09] MEDS ORDERED: ONDANSETRON HCL INJ/PF 4 MG/2 ML SDV IV ONE (00:56)
--- NOTE | 2018-05-09 00:58 | ER Document Report ---
ED General - General Chief Complaint: Vomiting Stated Complaint: VOMITING Time Seen by Provider: 05/09/18 00:46 Notes: Patient is a 37-year-old male that comes to the emergency department for chief complaint of vomiting, abdominal pain, and weakness. He states that for 1 week he has had multiple episodes of vomiting, he is unable to eat, he has vomited 5 times today. He states that ever today he has been progressively weak and now feels like he can barely move. His urine is very dark. He denies fever or chills. He has had intermittent bowel movements which appeared normal. Past medical history of duodenal switch, hypothyroidism after thyroidectomy, denies any other medical history. TRAVEL OUTSIDE OF THE [place] IN LAST 30 DAYS: No - Related Data Allergies/Adverse Reactions: No Known Allergies Allergy (Verified 12/28/17 11:35) Past Medical History - General Information source: Patient - Social History Smoking Status: Never Smoker Frequency of alcohol use: None Drug Abuse: None Lives with: Family Family History: Reviewed & Not Pertinent Renal/ Medical History: Denies: Hx Peritoneal Dialysis Past Surgical History: Reports: Hx Gastric Bypass Surgery, Other - He is a patient at [facility] for possible weight loss surgery in the - Immunizations Hx Diphtheria, Pertussis, Tetanus Vaccination: Yes Review of Systems - Review of Systems Constitutional: No symptoms reported EENT: No symptoms reported Cardiovascular: No symptoms reported Respiratory: No symptoms reported Gastrointestinal: See HPI Genitourinary: No symptoms reported Male Genitourinary: No symptoms reported Musculoskeletal: No symptoms reported Skin: No symptoms reported Hematologic/Lymphatic: No symptoms reported Neurological/Psychological: No symptoms reported Physical Exam - Vital signs Vitals: Temp Pulse Resp BP Pulse Ox 98.8 F 80 18 136/97 H 99 05/09/18 00:40 05/09/18 00:40 05/09/18 00:40 05/09/18 00:40 05/09/18 00:40 - Notes Notes: GENERAL: Slightly pale and slightly ill-appearing HEAD: Normocephalic, atraumatic. EYES: Pupils equal, round, and reactive to light. Extraocular movements intact. ENT: Oral mucosa moist, tongue midline. Oropharynx unremarkable. Airway patent. Nares patent, no nasal septal hematoma, TM's intact. NECK: Full range of motion. Supple. Trachea midline. LUNGS: Clear to auscultation bilaterally, no wheezes, rales, or rhonchi. No respiratory distress. HEART: Regular rate and rhythm. No murmur ABDOMEN: Mild tenderness of the epigastric and left upper quadrant area, no right upper quadrant tenderness, lower abdomen benign. Non-distended. Bowel sounds present in all 4 quadrants. GENITOURINARY: Deferred EXTREMITIES: Moves all 4 extremities spontaneously. No edema, normal radial and dorsalis pedis pulses bilaterally. No cyanosis. BACK: no cervical, thoracic, lumbar midline tenderness. No saddle anesthesia, normal distal neurovascular exam. NEUROLOGICAL: Alert and oriented x3. Normal speech. [cranial nerves II through XII grossly intact]. PSYCH: Normal affect, normal mood. SKIN: Warm, dry, normal turgor. No rashes or lesions noted. Course - Re-evaluation Re-evalutation: On initial evaluation patient lying on the bed, reporting weakness, appears mildly ill-appearing. However his abdomen is actually very soft and benign with no tenderness, guarding, rigidity except for very mild tenderness in the general mid to left upper abdomen. On reevaluation after IV fluids and Zofran patient is sitting up, well- appearing. Clinically much improved after IV fluids. Denying any pain. CBC unremarkable, chemistry shows mild elevation of LFTs without abnormal alk phos, bilirubin, or lipase. Acute abdominal series does not show obstruction or free air. Low suspicion of acute abdomen, obstruction, perforation. Patient given Carafate, Pepcid, Phenergan. He tolerated this and fluids without any difficulty. He reports feeling much better afterwards. He is asking for gastroenterology referral. Discussed medications, follow-up, and strict return precautions in detail with patient and at bedside. They state understanding and agreement with plan. - Vital Signs Vital signs: Temp Pulse Resp BP Pulse Ox 98.7 F 78 18 140/88 H 99 05/09/18 04:52 05/09/18 04:52 05/09/18 04:52 05/09/18 04:52 05/09/18 04:52 - Laboratory Result Diagrams: 05/09/18 01:18 05/09/18 01:18 Laboratory results interpreted by me: 05/09/18 05/09/18 05/09/18 01:18 01:18 02:04 WBC 11.5 H RDW 15.4 H BUN 6 L Direct Bilirubin 0.5 H AST 81 H ALT 99 H Urine Protein >=500 H Urine Glucose (UA) 50 H Urine Ketones 20 H Urine Bilirubin MODERATE H Urine Urobilinogen 4.0 H Urine Ascorbic Acid 40 H Discharge - Discharge Clinical Impression: Upper abdominal pain, Dehydration Vomiting Qualifiers: Vomiting type: unspecified Vomiting Intractability: non-intractable Nausea presence: with nausea Qualified Code(s): R11.2 - Nausea with vomiting, unspecified Condition: Stable Disposition: HOME, SELF-CARE Additional Instructions: Continue to rehydrate at home. Take Carafate and famotidine as prescribed for treatment of inflammation of the upper part of your abdominal tract, take Phenergan if needed for nausea. Start with bland food, slowly progress. Avoid NSAIDs, caffeine, smoking, alcohol, spicy food. Follow-up with gastroenterology referral and your primary care provider. Return if you worsen including vomiting, vomiting blood, black stools, severe pain, or any other concerning symptoms. Prescriptions: Famotidine [Pepcid 20 mg Tablet] 20 mg PO BID #12 tablet Promethazine HCl [Phenergan 25 mg Tablet] 25 mg PO Q6H PRN #20 tablet PRN Reason: Sucralfate [Carafate 1 gm Tablet] 1 gm PO QID #20 tablet Referrals: ARLETTE LOPEZ MD [ACTIVE STAFF] - Follow up as needed
[2018-05-09 01:37] LABS: ABSOLUTE BASOPHILS # (AUTO) 0.1 10^3/uL (0.0-0.2); ABSOLUTE LYMPHOCYTES (AUTO) 2.8 10^3/uL (0.5-4.7); ABSOLUTE MONOCYTES (AUTO) 0.7 10^3/uL (0.1-1.4); ABSOLUTE NEUT (AUTO) 7.9 10^3/uL (1.7-8.2); BASOPHILS % (AUTO) 0.5 % (0-2); EOSINOPHILS % (AUTO) 0.1 % (0-6); HEMATOCRIT 44.1 % (37.9-51.0); LYMPHOCYTES % (AUTO) 24.6 % (13-45); MEAN CORPUSCULAR HEMOGLOBIN 28.3 pg (27.0-33.4); MEAN CORPUSCULAR HGB CONC 33.9 g/dL (32.0-36.0); MEAN CORPUSCULAR VOLUME 84 fl (80-97); MONOCYTES % (AUTO) 6.4 % (3-13); PLATELET COUNT 190 10^3/uL (150-450); RED BLOOD COUNT 5.29 10^6/uL (4.35-5.55); RED CELL DISTRIBUTION WIDTH 15.4 % (11.5-14.0); SEGMENTED NEUTROPHILS % (AUTO) 68.4 % (42-78); TOTAL CELLS COUNTED % (AUTO) 100 %; WHITE BLOOD COUNT 11.5 10^3/uL (4.0-10.5)
--- NOTE | 2018-05-09 02:10 | RADIOLOGY REPORT (SQ) ---
EXAM DESCRIPTION: XR ABDOMEN SUPINE AND ERECT WITH CHEST (ABD ACUTE SERIES) COMPLETED DATE/TME: 05/09/2018 00:56 CLINICAL HISTORY: 37 years, Male, peristent vomiting, hx bowel surgery COMPARISON: None. NUMBER OF VIEWS: Four TECHNIQUE: AP view of the chest with supine and upright images of the abdomen LIMITATIONS: None. FINDINGS: Lungs are clear. The heart is normal in size. There is no pneumothorax or pleural effusion. There is no acute fracture. There is no intraperitoneal free air. The bowel gas pattern is normal. There are no abnormal calcifications. IMPRESSION: No acute cardiopulmonary abnormality. Nonobstructing bowel gas pattern 2010 [employer]- All Rights Reserved
[2018-05-09 02:21] LABS: APPEARANCE,URINE CLOUDY; BILIRUBIN,URINE MODERATE (NEGATIVE); COLOR,URINE DARK YELLOW; GLUCOSE, URINE 50 mg/dL (NEGATIVE); KETONES,URINE 20 mg/dL (NEGATIVE); LEUKOCYTE ESTERASE,URINE NEGATIVE (NEGATIVE); NITRITE,URINE NEGATIVE (NEGATIVE); PROTEIN,URINE >=500 mg/dL (NEGATIVE); URINE SPECIFIC GRAVITY 1.031
[2018-05-09 02:32] LABS: ALANINE AMINOTRANSFERASE 99 U/L (21-72); ALBUMIN 3.9 g/dL (3.5-5.0); ALKALINE PHOSPHATASE 100 U/L (38-126); ANION GAP 15 (5-19); ASPARTATE AMINO TRANSFERASE 81 U/L (17-59); BILIRUBIN,DIRECT 0.5 mg/dL (0.0-0.4); BILIRUBIN,TOTAL 1.2 mg/dL (0.2-1.3); BLOOD UREA NITROGEN 6 mg/dL (7-20); CALCIUM 9.5 mg/dL (8.4-10.2); CARBON DIOXIDE 25 mmol/L (22-30); CHLORIDE 101 mmol/L (98-107); GLUCOSE 98 mg/dL (75-110); LIPASE 34.4 U/L (23-300); POTASSIUM 3.6 mmol/L (3.6-5.0); SODIUM 140.5 mmol/L (137-145); TOTAL PROTEIN 7.5 g/dL (6.3-8.2)
[2018-05-09] MEDS ORDERED: SUCRALFATE 1 GM TABLET PO ONE (02:46)
[2018-05-09] MEDS ORDERED: PROMETHAZINE HCL 25 MG TABLET PO ONE (02:46)
[2018-05-09] MEDS ORDERED: FAMOTIDINE 20 MG TABLET PO ONE (02:46)
[2018-05-09 04:53] VITALS: BP 140/88
== END 2018-05-09 04:56 | disposition home or self-care (01) ==
LOC: ER 00:10
DX: R11.2 Nausea with vomiting, unspecified (principal); R10.10 Upper abdominal pain, unspecified; R10.816 Epigastric abdominal tenderness; R10.812 Left upper quadrant abdominal tenderness; E86.0 Dehydration; R53.1 Weakness; R79.89 Other specified abnormal findings of blood chemistry; R23.1 Pallor; E89.0 Postprocedural hypothyroidism; Z98.84 Bariatric surgery status
CPT/HCPCS: 99284; 96361; 96374; 36415; 87086; 83690; 85025; 80053; 81001; 74022; J2405; J7030